=== PATIENT | male | born 1975 | race African-American/Black ===

== ENCOUNTER 2017-05-23 21:35 | Emergency (ER) | payer SELFPAY ==
[~2017-05-23] VITALS: Ht 182.9 cm; Wt 68.0 kg
[2017-05-23] MEDS ORDERED: METF500T4 PO (23:23)
--- NOTE | 2017-05-23 23:30 | NUR ---
Patient BIB [id number] for ETOH. Patient is alert/oriented, ambulatory with a steady gait. To room 5A.
[2017-05-24] MEDS ORDERED: PANTOPRAZOLE SODIUM 40 MG VIAL IV ONE
[2017-05-24] MEDS ORDERED: IV NORMAL SALINE 1000 ML BAG IV ONE
[2017-05-24] MEDS ORDERED: PANTOPRAZOLE SODIUM 40 MG VIAL ONE (00:25)
[2017-05-24 00:47] LABS: HEMATOCRIT 41.1 % (40-50); HEMOGLOBIN 13.9 G/DL (14.0-18.0); MEAN CORPUSCULAR HEMOGLOBIN 31.6 UUG (27.0-31.0); MEAN CORPUSCULAR HGB CONC 34 g/dL (32.0-37.0); MEAN CORPUSCULAR VOLUME 93.4 FL (82.0-92.0); PLATELET COUNT (AUTO) 369 K/UL (150-450); WHITE BLOOD COUNT (AUTO) 7.1 K/UL (4.0-11.2)
[2017-05-24 01:07] LABS: CREATININE 0.9 mg/dL (0.6-1.3); POTASSIUM 3.6 mmol/L (3.5-5.1)
[2017-05-24 01:12] LABS: BILIRUBIN,DIRECT 0.2 mg/dL (0.0-0.2); BILIRUBIN,TOTAL 0.5 mg/dL (0.2-1.0)
--- NOTE | 2017-05-24 01:42 | NUR ---
Patient given written and verbal discharge instructions. Patient verbalizes understanding of instructions. Patient is ambulatory with steady gait. Refuses offer of [facility] placement. Patient given list of available shelters in surrounding area.
== END 2017-05-24 01:46 | disposition home or self-care (01) ==
LOC: ER 21:36
DX: K29.20 Alcoholic gastritis without bleeding (principal); K70.10 Alcoholic hepatitis without ascites; E11.9 Type 2 diabetes mellitus without complications; Z59.0 Homelessness
CPT/HCPCS: 36415; 80048; 80076; 83690; 85025; 96361; 96374; 99285; A4663; C9113; J7030